=== PATIENT | male | born 1965 | race Caucasian/White ===

== ENCOUNTER 2018-03-02 23:15 | Emergency (ER) | payer OTHER ==
[~2018-03-02] VITALS: Ht 180.3 cm; Wt 99.8 kg
[~2018-03-02 23:15] MED LIST: BACTRIM DS TAB1 EACH PO; CELEXA 20 MG TA20 MG PO; KEFLEX500 MG PO; MOBIC7.5 M1 PO; NORCO 5-325 TA1 EACH PO; PERCOCET 5-3251 EACH PO; SEROQUEL 25 MG25 M1 PO
[2018-03-02] MEDS ORDERED: BACTRIM DS TAB1 EACH PO (23:42)
[2018-03-02] MEDS ORDERED: NORCO 5-325 TA1 EAC1 PO (23:42)
[2018-03-03 00:13] VITALS: BP 177/96
== END 2018-03-03 00:13 | disposition home or self-care (01) ==
LOC: M.ERS 23:15
DX: L02.413 Cutaneous abscess of right upper limb (principal); F17.200 Nicotine dependence, unspecified, uncomplicated; F32.9 Major depressive disorder, single episode, unspecified; Z88.5 Allergy status to narcotic agent

== ENCOUNTER 2018-03-15 18:48 | Emergency (ER) | payer OTHER ==
[~2018-03-15] VITALS: Ht 180.3 cm; Wt 99.8 kg
[~2018-03-15 18:48] MED LIST changes: +NORCO 5-325 TA1 EAC1 PO
[2018-03-15] MEDS ORDERED: INDOMETHACIN 2525 MG PO (21:08)
[2018-03-15] MEDS ORDERED: PRILOSEC 20 MG20 MG PO (21:08)
[2018-03-15] MEDS ORDERED: CARAFATE 1 GM TA1 GM PO (21:08)
[2018-03-15 21:19] VITALS: BP 147/92
== END 2018-03-15 21:20 | disposition home or self-care (01) ==
LOC: M.ERS 18:48
DX: K21.9 Gastro-esophageal reflux disease without esophagitis (principal); M72.2 Plantar fascial fibromatosis; F32.9 Major depressive disorder, single episode, unspecified; Z88.6 Allergy status to analgesic agent

== ENCOUNTER 2018-03-30 01:06 | Emergency (ER) | payer OTHER ==
[~2018-03-30] VITALS: Ht 180.3 cm; Wt 99.8 kg
[~2018-03-30 01:06] MED LIST changes: +CARAFATE 1 GM TA1 GM PO; +INDOMETHACIN 2525 MG PO; +PRILOSEC 20 MG20 MG PO
[2018-03-30] MEDS ORDERED: NOHOMEMEDICATIONS (01:21)
[2018-03-30 02:06] LABS: ABSOLUTE EOSINOPHILS 0.1 thou/uL (0.0-0.7); ABSOLUTE LYMPHOCYTES 1.4 thou/uL (0.8-5.3); ABSOLUTE MONOCYTES 0.4 thou/uL (0.0-1.2); ABSOLUTE NEUTROPHILS 3.6 thou/uL (1.6-8.1); BASOPHILS 0.9 %; EOSINOPHILS 1.2 %; HEMATOCRIT 39.7 % (42.0-52.0); HEMOGLOBIN 13.5 gm/dL (14.0-18.0); MCH 30.4 pg (26.0-34.0); MCHC 33.9 g/dL (28.0-37.0); MCV 89.7 fL (80.0-100.0); MONOCYTES 7.6 %; MPV 7.3 fl. (7.2-11.1); NUCLEATED RBCS 0 /100WBC; PLATELET COUNT* 291 thou/uL (150-400); POLYS 64.3 %; RBC 4.42 mil/uL (4.50-6.00); RDW-CV 13.7 % (10.5-14.5); WBC 5.6 thou/uL (4.0-11.0)
[2018-03-30] MEDS ORDERED: NORCO 7.5-3251 EACH PO (02:21)
[2018-03-30] MEDS ORDERED: CLEOCIN HCL150 MG PO (02:21)
[2018-03-30 02:29] LABS: CALCIUM 8.6 mg/dL (8.5-10.1); CREATININE 1.1 mg/dL (0.6-1.3); POTASSIUM 3.5 mmol/L (3.5-5.1)
[2018-03-30 02:34] LABS: ALBUMIN 2.7 g/dL (3.4-5.0); TOTAL BILIRUBIN 0.4 mg/dL (<0.1-1.0); TOTAL PROTEIN 6.1 g/dL (6.4-8.2)
[2018-03-30 03:07] VITALS: BP 150/89
== END 2018-03-30 03:07 | disposition home or self-care (01) ==
LOC: M.ERS 01:06
PROVIDERS: Emergency Medicine
DX: L02.414 Cutaneous abscess of left upper limb (principal); L02.413 Cutaneous abscess of right upper limb; F15.10 Other stimulant abuse, uncomplicated; F32.9 Major depressive disorder, single episode, unspecified; F17.210 Nicotine dependence, cigarettes, uncomplicated; Z88.6 Allergy status to analgesic agent

== ENCOUNTER 2018-03-31 23:05 | Emergency (ER) | payer OTHER ==
[~2018-03-31] VITALS: Ht 180.3 cm; Wt 99.8 kg
[~2018-03-31 23:05] MED LIST changes: +CLEOCIN HCL150 MG PO; +NOHOMEMEDICATIONS; +NORCO 7.5-3251 EACH PO
[2018-03-31 23:56] VITALS: BP 131/66
== END 2018-03-31 23:56 | disposition home or self-care (01) ==
LOC: M.ERS 23:05
DX: L02.511 Cutaneous abscess of right hand (principal); L02.512 Cutaneous abscess of left hand; F32.9 Major depressive disorder, single episode, unspecified; F17.210 Nicotine dependence, cigarettes, uncomplicated; Z88.6 Allergy status to analgesic agent